=== PATIENT | male | born 2000 | race Caucasian/White ===

== ENCOUNTER 2018-08-19 23:00 | Emergency (ER) | payer SELFPAY ==
[~2018-08-19] VITALS: Ht 170.2 cm; Wt 54.4 kg
[~2018-08-19 23:00] MED LIST: CONCERTA PO; LORA-672
--- NOTE | 2018-08-19 23:11 | NUR ---
Patient to ER bed 8 to gown for evaluation
[2018-08-19 23:15] VITALS: BP_SYST 122
--- NOTE | 2018-08-19 23:18 | NUR ---
ER at bedside examining patient.
[2018-08-19 23:31] VITALS: BP_SYST 122
--- NOTE | 2018-08-19 23:31 | NUR ---
Patient given written and verbal discharge instructions and verbalizes understanding. ER MD discussed with patient the results and treatment provided. Patient in stable condition. ID arm band removed. Rx given. Patient educated on pain management and to follow up with PMD. Pain Scale 2. Opportunity for questions provided and answered. Medication side effect fact sheet provided.
== END 2018-08-19 23:31 | disposition home or self-care (01) ==
LOC: SED 23:00
DX: B34.9 Viral infection, unspecified (principal); E78.5 Hyperlipidemia, unspecified; F90.9 Attention-deficit hyperactivity disorder, unspecified type; R03.0 Elevated blood-pressure reading, without diagnosis of hypertension
CPT/HCPCS: 99281